=== PATIENT | female | born 1995 | race Caucasian/White ===

== ENCOUNTER 2016-05-31 23:52 | Emergency (ER) | payer OTHER ==
[~2016-05-31] VITALS: Ht 170.2 cm; Wt 59.0 kg
[2016-06-01 01:13] VITALS: BP 119/75
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
[2016-06-01] MEDS ORDERED: ONDANSETRON ODT 4 MG TAB.RAPDIS PO ONE (01:15)
[2016-06-01] MEDS ORDERED: IBUPROFEN 600 MG TABLET. PO ONE (01:15)
[2016-06-01] MEDS ORDERED: IBUP-1007 PO (01:15)
[2016-06-01] MEDS ORDERED: ONDA4TAB10 SL (01:15)
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
[2016-06-01 01:22] LABS: NEG OBC UR NEG; POS OBC UR POS
== END 2016-06-01 01:36 | disposition home or self-care (01) ==
LOC: ER 23:52
DX: S06.0X0A Concussion without loss of consciousness, initial encounter (principal); R07.89 Other chest pain; M54.5 Low back pain; F12.10 Cannabis abuse, uncomplicated; G40.909 Epilepsy, unspecified, not intractable, without status epilepticus; V89.2XXA Person injured in unspecified motor-vehicle accident, traffic, initial encounter; Y92.413 State road as the place of occurrence of the external cause; Y93.89 Activity, other specified; Y99.8 Other external cause status
CPT/HCPCS: 70450; 81025; 99284; Q0162

== ENCOUNTER → 2016-09-20 | Outpatient (CLI) | payer OTHER ==
[~2016-09-20] MED LIST: IBUP-1007 PO; ONDA4TAB10 SL
--- NOTE | 2016-09-20 13:30 | RAD ---
Examination: Targeted ultrasound of the left breast History: History of tenderness left breast at 3:00 position Comparison: None available. Findings: The left breast demonstrates dense appearing breast tissue without evidence of mass or lesion. Impression: Dense appearing left breast tissue without mass or lesion identified. BI-RADS Category 2. Benign findings. Clinical follow-up is recommended
== END | disposition home or self-care (01) ==
LOC: US 12:34
PROVIDERS: ATTEND Physician Assistant
DX: N63 Unspecified lump in breast (principal)
CPT/HCPCS: 76641